=== PATIENT | female | born 1980 | race Caucasian/White ===

== ENCOUNTER → 2020-10-06 13:29 | Outpatient (BNVA) | payer OTHER, SELFPAY | PROVIDERS: Family Provider Electrodiagnostic Medicine; Visit Provider Nurse Practitioner | DX: J02.0 Streptococcal pharyngitis (principal) | CPT/HCPCS: 87880 ==

== ENCOUNTER → 2021-04-21 13:08 | Outpatient (BNVA) | payer OTHER, SELFPAY | PROVIDERS: Family Provider Electrodiagnostic Medicine; Visit Provider Nurse Practitioner Women's Health | DX: R39.9 Unspecified symptoms and signs involving the genitourinary system (principal) | CPT/HCPCS: 81000; 87086 ==

== ENCOUNTER → 2021-07-15 11:00 | Outpatient (BNVA) | payer OTHER, SELFPAY | PROVIDERS: Family Provider Electrodiagnostic Medicine; Visit Provider Obstetrics & Gynecology | DX: Z01.419 Encounter for gynecological examination (general) (routine) without abnormal findings (principal) | CPT/HCPCS: 88175 ==

== ENCOUNTER 2022-03-18 11:43 | Outpatient (CLI) | payer OTHER, SELFPAY ==
[2022-03-18 12:26] LABS: Basophils % 0.7 %; Eosinophils # 0.1 10^3/uL (0.0-0.8); Eosinophils % 0.8 %; Hemoglobin 9.9 g/dL (11.5-15.3); Lymphocytes # 1.6 10^3/uL (0.8-4.8); Lymphocytes % 26.6 %; Mean Corpuscular HGB Conc 29.1 g/dL (30.0-36.0); Mean Corpuscular Hemoglobin 22.4 pg (28.0-34.0); Mean Corpuscular Volume 76.9 fl (81-99); Mean Platelet Volume 9.4 fL (7.4-10.4); Monocytes # 0.5 10^3/uL (0.2-0.9); Monocytes % 7.7 %; Neutrophils # 3.88 10^3/uL (1.8-7.7); Neutrophils % 63.9 %; Nucleated Red Blood Cells % 0 %; Platelet Count 351 10^3/cmm (130-400); Red Blood Count 4.42 10^6/uL (4.1-5.3); Red Cell Distribution Width 15.8 % (12.1-15.1); White Blood Count 6.1 10^3/uL (4.0-10.0)
[2022-03-18 12:44] LABS: Calcium 9.7 mg/dL (8.5-10.5)
[2022-03-18 12:52] LABS: Parathyroid Hormone 45.7 pg/mL (15-65)
[2022-03-18 12:54] LABS: Estmated Average Glucose 103; Hemoglobin A1C 5.2 % (4.0-6.0)
[2022-03-18 12:57] LABS: Alanine Aminotransferase 18 U/L (0-33); Albumin Level 4.4 g/dL (3.5-5.2); Alkaline Phosphatase 63 U/L (35-105); Anion Gap 13.1 (5-19); Aspartate Amino Transferase 26 U/L (0-32); Blood Urea Nitrogen 12 mg/dL (6-20); Calcium 9.4 mg/dL (8.5-10.5); Carbon Dioxide 23 mmol/L (22-29); Chloride 103 mmol/L (98-107); Chol HDL Ratio 3.58 mg/dL (0.0-4.40); Cholesterol 229 mg/dL (0-200); Ferritin 8 ng/mL (15-150); Globulin 3.1 g/dL (1.3-4.6); Glomerular Filtration Rate 91.3 mL/min (90-130); Glucose 94 mg/dL (65-115); HDL Cholesterol 64 mg/dL (60-100); Iron 50 ug/dL (37-145); LDL Cholesterol Calculated 144 mg/dL (50-129); LDL HDL Ratio 2.25 RATIO (0.00-3.22); Osmolality Calculated 280 mOsm/kg (285-295); Percent Saturation 9.4 % (20-50); Potassium 4.1 mmol/L (3.5-5.1); Sodium 135 mmol/L (136-145); Total Bilirubin 0.8 mg/dL (0.15-1.2); Total Iron Binding Capacity 530 mcg/dl; Total Protein 7.5 g/dL (6.6-8.7); Triglycerides 106 mg/dL (0-150); Unsaturated Iron Binding 480 ug/dL (112-347)
[2022-03-18 12:58] LABS: 25 Hydroxy Vitamin D 30 ng/mL (30-100); Thyroid Stimulating Hormone 3.35 uIU/mL (0.27-4.20); Vitamin B12 448 pg/mL (232-1245)
[2022-03-21 17:18] LABS: Zinc Level, Serum or Plasma 70 mcg/dL (60-130)
[2022-03-21 19:58] LABS: HEP C RNA Viral Load Quant <1.18 NOT DETECTED Log IU/mL (NOT DETECTED); HEP C RNA Viral Load Quant <15 NOT DETECTED IU/mL (NOT DETECTED)
[2022-03-22 23:07] LABS: Vitamin B1(Thiamin) Plas/Ser 20 nmol/L (8-30)
== END 2022-03-18 11:44 | disposition home or self-care (01) ==
PROVIDERS: PCP Family Medicine; Visit Provider Family Medicine
DX: R53.83 Other fatigue (principal); B18.2 Chronic viral hepatitis C; Z98.84 Bariatric surgery status
CPT/HCPCS: 36415; 80053; 80061; 82306; 82310; 82607; 82728; 83036; 83540; 83550; 83970; 84425; 84443; 84630; 85025; 87522

== ENCOUNTER → 2022-05-10 14:08 | Outpatient (BNVA) | payer OTHER, SELFPAY | PROVIDERS: PCP Family Medicine; Visit Provider Registered Nurse Neonatal Intensive Care | DX: R05.9 Cough, unspecified (principal) | CPT/HCPCS: 87400 ==

== ENCOUNTER → 2022-08-30 12:15 | Outpatient (BNVA) | payer OTHER, SELFPAY | PROVIDERS: PCP Family Medicine; Visit Provider Family Medicine | DX: K95.89 Other complications of other bariatric procedure (principal); D50.8 Other iron deficiency anemias; D50.9 Iron deficiency anemia, unspecified; M77.12 Lateral epicondylitis, left elbow | CPT/HCPCS: 82728; 83550; 85025 ==

== ENCOUNTER 2022-10-18 17:37 | Outpatient (CLI) | payer OTHER, SELFPAY ==
--- NOTE | 2022-10-18 17:46 | XRR_ITS ---
PROCEDURE INFORMATION: Exam: XR Right Knee Exam date and time: 10/18/2022 5:49 PM Age: 41 years old Clinical indication: Patient HX: C/O right knee pain. Has fallen more that once over the last few years. Most recent was 1 week or so ago. TECHNIQUE: Imaging protocol: Radiologic exam of the right knee. Views: 3 views. COMPARISON: No relevant prior studies available. FINDINGS: Bones/joints: No fracture or dislocation. Soft tissues: Normal. XR/XR knee RT 3V* [id number] IMPRESSION: No fracture or dislocation.
== END 2022-10-18 17:38 | disposition home or self-care (01) ==
PROVIDERS: PCP Family Medicine; Visit Provider Family Medicine
DX: M25.561 Pain in right knee (principal)
CPT/HCPCS: 73562

== ENCOUNTER 2023-06-16 11:43 | Outpatient (CLI) | payer OTHER, SELFPAY ==
--- NOTE | 2023-06-16 11:47 | MM_ITS ---
WS: [id number] Bilateral screening 3D tomosynthesis digital mammogram, 06/16/2023 Clinical Data: screening mammogram Comparison: None. Findings: The breast parenchymal pattern shows fibroglandular tissue. No spiculated masses or clustered calcifi cations are seen. There are no secondary signs of carcinoma. The patient has bilateral augmentation m ammoplasty implants that are intact. Impression: 1. Negative bilateral mammogram with no prior exam for review. 2. Recommend annual screening mammograms. MM/[place] [id number] BIRADS: 2-Benign FOLLOW UP: 1 Year Follow-up The CAD stock checker was used.
--- NOTE | 2023-06-16 12:30 | US_ITS ---
WS: [id number] THYROID ULTRASOUND HISTORY: left thyroid nodule COMPARISON: 07/26/2016 Right lobe: 1.5 cm x 1.2 cm x 4.5 cm (w x ap x l). Volume: 4.2 cm3. Normal size and echotexture. No significant are dominant nodules are present. Left lobe: 1.5 cm x 1.2 cm x 4.5 cm (w x ap x l). Volume: 4.3 cm3. Normal sized thyroid. Mixed echogenicity nodule in the mid gland measures 6 x 4 x 6 mm. Similar in ap pearance to the prior study. There is an additional smaller colloid cyst in the lower pole which is s maller. Isthmus: 0.2 cm. IMPRESSION: TI-RADS 2: Mid LEFT thyroid nodule. Stable nodule. No additional imaging necessary.
== END 2023-06-16 11:44 | disposition home or self-care (01) ==
LOC: RAD 11:43
PROVIDERS: PCP Family Medicine; Visit Provider Family Medicine
DX: E04.1 Nontoxic single thyroid nodule (principal); Z12.31 Encounter for screening mammogram for malignant neoplasm of breast
CPT/HCPCS: 76536; 77063; 77067

== ENCOUNTER 2024-06-19 09:30 | Outpatient (CLI) | payer OTHER, SELFPAY ==
--- NOTE | 2024-06-19 09:44 | MM_ITS ---
WS: [id number] VIEWS: MLO and CC views both breasts. 3D digital tomosynthesis is also included in this exam. Breast implant displacement MLO and cc views also included. Comparison made with prior exam of 06/16/2023. Findings: There are scattered areas of fibroglandular density. FINDINGS MM/MM scr BI tomosynthesis [id number] Impression: BI-RADS: 2 - Benign. FOLLOW-UP: 1 Year Follow-up This mammogram was also analyzed by the Computer Aided Detection System R2 Imag e Grout Machine Tender.
== END 2024-06-19 09:31 | disposition home or self-care (01) ==
PROVIDERS: Visit Provider Family Medicine
DX: Z12.31 Encounter for screening mammogram for malignant neoplasm of breast (principal); R92.323 Mammographic fibroglandular density, bilateral breasts
CPT/HCPCS: 77063; 77067

== ENCOUNTER → 2024-07-18 14:48 | Outpatient (BNVA) | payer OTHER, SELFPAY | PROVIDERS: Visit Provider Nurse Practitioner Women's Health | DX: Z12.4 Encounter for screening for malignant neoplasm of cervix (principal) | CPT/HCPCS: 87624 ==

== ENCOUNTER → 2024-09-24 11:58 | Outpatient (BNVA) | payer OTHER, SELFPAY | PROVIDERS: PCP Family Medicine; Visit Provider Family Medicine | DX: E55.9 Vitamin D deficiency, unspecified (principal); Z98.84 Bariatric surgery status; D50.9 Iron deficiency anemia, unspecified; E83.52 Hypercalcemia; E53.8 Deficiency of other specified B group vitamins | CPT/HCPCS: 36415; 80053; 80061; 82306; 82310; 82607; 82728; 83550; 83970; 84443; 84630; 85025 ==

== ENCOUNTER → 2024-10-21 08:41 | Outpatient (BNVA) | payer OTHER, SELFPAY | PROVIDERS: PCP Family Medicine; Visit Provider Nurse Practitioner Women's Health | DX: D25.9 Leiomyoma of uterus, unspecified (principal) | CPT/HCPCS: 76830 ==